=== PATIENT | male | born 1985 | race Caucasian/White ===

== ENCOUNTER 2024-10-18 09:04 | Emergency (ER) | payer OTHER ==
[~2024-10-18] VITALS: Ht 190.5 cm; Wt 120.5 kg
[2024-10-18 09:36] LABS: VENOUS BASE EXCESS -3.0 (-2.0-2.0); VENOUS HCO3 21.2 MMOL/L (23.0-27.0); VENOUS O2 SATURATION 84.9 % (60.0-80.0); VENOUS PARTIAL PRESSURE CO2 35.7 mmHg (38.0-50.0); VENOUS PARTIAL PRESSURE O2 49.1 mmHg (30.0-50.0); VENOUS PH 7.391 UNITS (7.330-7.430); VENOUS STANDARD HCO3 21.6 MMOL/L; VENOUS TOTAL CO2 22.3 MMOL/L (24.0-28.0)
[2024-10-18] MEDS: [UNRECOGNIZED DRUG - OTHER] IV ONE (09:36)
[2024-10-18] MEDS: NS 0.9% IV ONE (09:36)
[2024-10-18 09:42] LABS: BASO # 0.1 10^3/uL (0.0-0.2); BASO % 0.5 % (0.0-1.0); EOS # 0.3 10^3/uL (0.0-0.5); EOS % 1.8 % (0.0-3.0); LYMPH # 2.1 10^3/uL (1.5-5.0); LYMPH % 14.0 % (24.0-44.0); MONO # 1.2 10^3/uL (0.0-0.8); MONO % 8.3 % (2.0-8.0); NEUTROPHILS # 11.2 10^3/uL (1.5-8.5); NEUTROPHILS % 74.7 % (36.0-66.0); PLATELET COUNT, AUTOMATED 432 10^3/uL (150-450)
[2024-10-18 09:50] LABS: APPEARANCE, URINE CLOUDY (CLEAR); BACTERIA, URINE AUTO 2+ (NEGATIVE); BILIRUBIN, URINE AUTO NEGATIVE (NEGATIVE); BLOOD, URINE BLOOD 2+ (NEGATIVE); GLUCOSE, URINE (UA) AUTO NEGATIVE (NEGATIVE); KETONE, URINE AUTO NEGATIVE (NEGATIVE); LEUKOCYTE ESTERASE, URINE AUTO 3+ (NEGATIVE); MUCUS, URINE SMALL (NEGATIVE); NITRITE, URINE AUTO NEGATIVE (NEGATIVE); PROTEIN, URINE AUTO 2+ mg/dL (NEGATIVE); RBC, URINE AUTO TNTC /HPF (0-3); SPECIFIC GRAVITY URINE AUTO 1.006 (1.002-1.035); SQUAMOUS EPITHELIAL CELL UR AU 1 /HPF (0-6); UROBILINOGEN, URINE AUTO 0.2 mg/dL (0.0-2.0); WBC, URINE AUTO TNTC /HPF (0-3)
[2024-10-18 09:58] LABS: INR 1.09
[2024-10-18 10:10] LABS: ALT/SGPT 14 U/L (7.0-40); AST/SGOT < 8 U/L (<34); C REACTIVE PROTEIN QUANTITATIV 0.62 MG/DL (<1.0); CALCIUM LEVEL 9.4 MG/DL (8.5-10.1); CARBON DIOXIDE LEVEL 22 MMOL/L (20-31); CHLORIDE LEVEL 108 MMOL/L (98-107); CREATININE FOR GFR 0.80 MG/DL (0.70-1.30); GLOMERULAR FILTRATION RATE > 90.0 (>60); POTASSIUM SERUM 4.2 MMOL/L (3.5-5.1); SODIUM LEVEL 141 MMOL/L (136-145)
[2024-10-18] MEDS: cefTRIAXone SOD 2 GM in DEXTROSE 5% (D5W) ADV/MINI-BAG 50 ML IV ONE (10:32)
[2024-10-18] MEDS ORDERED: ISOVUE-370 76% 100 ML VIAL As Ordered ONE (11:25)
[2024-10-18] MEDS: FACTOR XA,INACTIVATED-ZHZO 400 MG in APPROPRIATE DILUENT 40 ML IV ONE (12:47)
[2024-10-18] MEDS: FACTOR XA,INACTIVATED-ZHZO 480 MG in APPROPRIATE DILUENT 48 ML IV ONE (12:54)
[2024-10-18 14:06] VITALS: BP 143/67; TEMP 96.6; O2SAT 98
== END 2024-10-18 14:25 | disposition short-term general hospital (02) ==
LOC: M ED 09:04
DX: I60.9 Nontraumatic subarachnoid hemorrhage, unspecified (principal); A41.9 Sepsis, unspecified organism; F32.A Depression, unspecified; G82.20 Paraplegia, unspecified; Z96.0 Presence of urogenital implants; F17.200 Nicotine dependence, unspecified, uncomplicated
CPT/HCPCS: 70450; 70496; 70498; 71045; 80048; 80076; 81001; 82150; 82803; 83605; 84145; 84484; 85025; 85610; 85730; 86140; 86850; 86900; 86901; 87040; 87088; 87186; 87486; 87581; 87633; 87798; 93005; 93041; 94760; 96361; 96365; 96366; 96367; 99285; J0696; J7169; Q9967

== ENCOUNTER → 2024-11-13 | Outpatient (REF) | payer OTHER ==
[2024-11-13 15:12] LABS: APPEARANCE, URINE CLOUDY (CLEAR); BACTERIA, URINE AUTO 3+ (NEGATIVE); BILIRUBIN, URINE AUTO NEGATIVE (NEGATIVE); BLOOD, URINE BLOOD 2+ (NEGATIVE); GLUCOSE, URINE (UA) AUTO NEGATIVE (NEGATIVE); KETONE, URINE AUTO NEGATIVE (NEGATIVE); LEUKOCYTE ESTERASE, URINE AUTO 3+ (NEGATIVE); MUCUS, URINE SMALL (NEGATIVE); NITRITE, URINE AUTO POSITIVE (NEGATIVE); PROTEIN, URINE AUTO 1+ mg/dL (NEGATIVE); RBC, URINE AUTO 54 /HPF (0-3); SPECIFIC GRAVITY URINE AUTO 1.014 (1.002-1.035); SQUAMOUS EPITHELIAL CELL UR AU 0 /HPF (0-6); UROBILINOGEN, URINE AUTO 0.2 mg/dL (0.0-2.0); WBC, URINE AUTO 78 /HPF (0-3)
== END ==
LOC: M LAB REF 14:39
PROVIDERS: ATTEND Physician Assistant
DX: R30.0 Dysuria (principal)

== ENCOUNTER 2024-11-23 00:26 | Inpatient (IN) | payer OTHER, MEDICAID ==
[~2024-11-23] VITALS: Ht 190.5 cm; Wt 120.4 kg
[2024-11-23] MEDS: ACETAMINOPHEN *IV* 1,000 MG in IV 1 EA IV ONE (01:22)
[2024-11-23] MEDS: NS (Normal Saline) 0.9% 1,000 ML IV ONE ×2 (01:41→02:40)
[2024-11-23 01:58] LABS: ALT/SGPT 22 U/L (7.0-40); AST/SGOT 11 U/L (<34); CALCIUM LEVEL 9.6 MG/DL (8.5-10.1); CARBON DIOXIDE LEVEL 18 MMOL/L (20-31); CHLORIDE LEVEL 109 MMOL/L (98-107); CK-MB VALUE MASS 1.5 NG/ML (<3.6); CREATININE FOR GFR 0.96 MG/DL (0.70-1.30); GLOMERULAR FILTRATION RATE > 90.0 (>60); POTASSIUM SERUM 3.2 MMOL/L (3.5-5.1); SODIUM LEVEL 142 MMOL/L (136-145)
[2024-11-23 01:59] LABS: CPK CREATINE PHOSPHOKINASE 89 U/L (46-171); MB/CK RELATIVE INDEX 1.68 (< OR =4)
[2024-11-23] MEDS ORDERED: ISOVUE-370 76% 100 ML VIAL As Ordered ONE (02:03)
[2024-11-23 02:10] LABS: BASO # 0.1 10^3/uL (0.0-0.2); BASO % 0.5 % (0.0-1.0); EOS # 0.1 10^3/uL (0.0-0.5); EOS % 0.6 % (0.0-3.0); LYMPH # 1.7 10^3/uL (1.5-5.0); LYMPH % 9.2 % (24.0-44.0); MONO # 1.7 10^3/uL (0.0-0.8); MONO % 9.0 % (2.0-8.0); NEUTROPHILS # 14.9 10^3/uL (1.5-8.5); NEUTROPHILS % 79.5 % (36.0-66.0); PLATELET COUNT, AUTOMATED 381 10^3/uL (150-450)
[2024-11-23] MEDS: MORPHINE 4 MG/ML 1 ML VIAL IV ONE (02:21)
[2024-11-23 02:43] LABS: RSV AMPLIFICATION NEGATIVE (NEGATIVE)
[2024-11-23] MEDS: HYDROMORPHONE HCL 0.5 MG/0.5 ML SYRINGE IV ONE (04:00)
[2024-11-23] MEDS: PIPERACILLIN/TAZOBACTAM SOD 4.5 GM in DEXTROSE 5% (D5W) ADV/MINI-BAG 50 ML IV ONE (05:33)
[2024-11-23 05:50] LABS: KETONE, URINE AUTO RFX NEGATIVE (NEGATIVE); LEUKOCYTE ESTERASE UR AUTO RFX 2+ (NEGATIVE); MUCUS, URINE RFX SMALL (NEGATIVE); NITRITE, URINE AUTO RFX POSITIVE (NEGATIVE); RBC, URINE AUTO RFX 21 /HPF (0-3); SQUAM EPITHELIAL CELL UR AURFX 0 /HPF (0-6); WBC, URINE AUTO RFX 48 /HPF (0-3)
[2024-11-23] MEDS ORDERED: TIZA4CAP PO (06:35)
[2024-11-23] MEDS ORDERED: DULO1CAP5 PO (06:35)
[2024-11-23] MEDS ORDERED: OXYC20TA2 PO (06:35)
[2024-11-23] MEDS ORDERED: NITR100C2 PO (06:35)
[2024-11-23] MEDS ORDERED: MORP-69 PO (06:35)
[2024-11-23] MEDS ORDERED: MIDO5TA PO (06:35)
[2024-11-23] MEDS ORDERED: CIPR500T39 PO (06:35)
[2024-11-23] MEDS ORDERED: GABA-1172 PO (06:35)
[2024-11-23] MEDS ORDERED: TRAZ-257 PO (06:35)
[2024-11-23] MEDS ORDERED: VANCOMYCIN HCL 1,000 MG, VIAL MATE ADAPTER 1 EACH in NS 250 ML IV SCH (09:00)
[2024-11-23] MEDS ORDERED: ENOXAPARIN 40 MG/0.4 ML SYRINGE (J1650 PER 10MG) SC SCH (09:00)
[2024-11-23] MEDS: POTASSIUM CHLORIDE 10MEQ SR TABLET PO ONE (09:01)
[2024-11-23] MEDS: DOXYCYCLINE HYCLATE 100 MG TABLET PO SCH (09:01)
[2024-11-23 09:15] LABS: INR 1.08
[2024-11-23 09:17] LABS: D-DIMER QUANT 2.07 ug/mL (<0.5); INR 1.12
[2024-11-23] MEDS ORDERED: HOME MED LIST COMPLETE! XX SCH (09:30)
[2024-11-23 09:51] LABS: ALT/SGPT 20 U/L (7.0-40); AST/SGOT 10 U/L (<34); CALCIUM LEVEL 9.0 MG/DL (8.5-10.1); CARBON DIOXIDE LEVEL 22 MMOL/L (20-31); CHLORIDE LEVEL 108 MMOL/L (98-107); CREATININE FOR GFR 0.59 MG/DL (0.70-1.30); GLOMERULAR FILTRATION RATE > 90.0 (>60); POTASSIUM SERUM 3.7 MMOL/L (3.5-5.1); SODIUM LEVEL 141 MMOL/L (136-145)
[2024-11-23] MEDS: PANTOPRAZOLE 40MG VIAL IV SCH (10:10)
[2024-11-23] MEDS: CIPROFLOXACIN 400 MG in IV 1 EA IV SCH (10:10)
[2024-11-23] MEDS: GABAPENTIN 300 MG CAP PO SCH (10:11)
[2024-11-23 10:30] VITALS: BP 149/91; TEMP 97.5; O2SAT 98
[2024-11-23] MEDS: HYDROmorphone HCL 2 MG/ML 1 ML VIAL IV PRN (10:43)
[2024-11-23] MEDS: MORPHINE SULFATE TAB EXT REL 15 MG PO SCH (11:00)
[2024-11-23] MEDS ORDERED: LEVALBUTEROL 1.25 MG 0.5ML CONCENTRATE NEB NEB PRN (11:55)
[2024-11-23] MEDS: VANCOMYCIN HCL 2,000 MG, VIAL MATE ADAPTER 1 EACH in NS 500 ML IV ONE (12:24)
[2024-11-23 12:28] VITALS: TEMP 96.8
[2024-11-23 12:38] LABS: IRON (FE) 23 UG/DL (65-175)
[2024-11-23 12:39] LABS: PERCENT SATURATION 7.6 % (19.7-50.0)
[2024-11-23 12:41] LABS: VITAMIN B12 LEVEL 280 PG/ML (211-911)
[2024-11-23 12:55] VITALS: BP 152/83; TEMP 97.7; O2SAT 93
[2024-11-23] MEDS: NICOTINE 21 MG/24 HR 1 EA TRANSDERMAL TD SCH (13:46)
[2024-11-23] MEDS: guaiFENesin ER TABLET 600 MG TAB PO SCH (13:46)
[2024-11-23] MEDS: LEVALBUTEROL 1.25 MG 0.5ML CONCENTRATE NEB NEB SCH (14:18)
[2024-11-23] MEDS: MEROPENEM 2 GM in SODIUM CHLORIDE 0.9% INJ 100 ML IV SCH (15:35)
[2024-11-23] MEDS: MIDODRINE 5 MG TAB PO SCH (15:41)
[2024-11-23] MEDS: VANCOMYCIN HCL 1,250 MG, VIAL MATE ADAPTER 1 EACH in NS 250 ML IV SCH (18:41)
[2024-11-23 20:44] VITALS: BP 141/77; TEMP 97.9; O2SAT 92
[2024-11-23] MEDS ORDERED: DOXYCYCLINE HYCLATE 100 MG TABLET PO SCH (21:00)
[2024-11-24 04:11] VITALS: BP 140/86; TEMP 97.3; O2SAT 98
[2024-11-24 04:30] VITALS: BP 146/83; TEMP 97.9; O2SAT 90
[2024-11-24 07:32] VITALS: O2SAT 93
[2024-11-24 09:18] LABS: PLATELET COUNT, AUTOMATED 327 10^3/uL (150-450)
[2024-11-24] MEDS: ENOXAPARIN 40 MG/0.4 ML SYRINGE (J1650 PER 10MG) SC SCH (09:23)
[2024-11-24 09:42] LABS: ALT/SGPT 19 U/L (7.0-40); AST/SGOT 9 U/L (<34); CALCIUM LEVEL 9.1 MG/DL (8.5-10.1); CARBON DIOXIDE LEVEL 25 MMOL/L (20-31); CHLORIDE LEVEL 103 MMOL/L (98-107); CREATININE FOR GFR 0.46 MG/DL (0.70-1.30); GLOMERULAR FILTRATION RATE > 90.0 (>60); POTASSIUM SERUM 3.8 MMOL/L (3.5-5.1); SODIUM LEVEL 138 MMOL/L (136-145)
[2024-11-24] MEDS: VANCOMYCIN HCL 1,500 MG, VIAL MATE ADAPTER 1 EACH in NS 500 ML IV SCH (10:28)
[2024-11-24 12:00] VITALS: BP 127/67; TEMP 97.5; O2SAT 94
[2024-11-24 21:05] VITALS: BP 131/70; TEMP 97.5; O2SAT 93
[2024-11-25 03:40] VITALS: BP 122/69; TEMP 97.7; O2SAT 93
[2024-11-25] MEDS: ACETAMINOPHEN 325 MG TAB PO PRN (08:03)
[2024-11-25 08:56] LABS: PLATELET COUNT, AUTOMATED 325 10^3/uL (150-450)
[2024-11-25 09:21] LABS: ALT/SGPT 18 U/L (7.0-40); AST/SGOT < 8 U/L (<34); CALCIUM LEVEL 9.2 MG/DL (8.5-10.1); CARBON DIOXIDE LEVEL 26 MMOL/L (20-31); CHLORIDE LEVEL 101 MMOL/L (98-107); CREATININE FOR GFR 0.49 MG/DL (0.70-1.30); GLOMERULAR FILTRATION RATE > 90.0 (>60); POTASSIUM SERUM 4.1 MMOL/L (3.5-5.1); SODIUM LEVEL 137 MMOL/L (136-145)
[2024-11-25 12:00] VITALS: BP 151/83; TEMP 93; O2SAT 93
[2024-11-25] MEDS: MORPHINE SULFATE TAB EXT REL 15 MG PO SCH (16:52)
[2024-11-25 20:05] VITALS: BP 131/78; TEMP 97.3; O2SAT 91
[2024-11-26 05:37] VITALS: BP 116/68; TEMP 97.9; O2SAT 92
[2024-11-26 07:24] LABS: PLATELET COUNT, AUTOMATED 349 10^3/uL (150-450)
[2024-11-26 07:46] LABS: ALT/SGPT 17 U/L (7.0-40); AST/SGOT 9 U/L (<34); CALCIUM LEVEL 9.3 MG/DL (8.5-10.1); CARBON DIOXIDE LEVEL 27 MMOL/L (20-31); CHLORIDE LEVEL 103 MMOL/L (98-107); CREATININE FOR GFR 0.47 MG/DL (0.70-1.30); GLOMERULAR FILTRATION RATE > 90.0 (>60); POTASSIUM SERUM 4.4 MMOL/L (3.5-5.1); SODIUM LEVEL 137 MMOL/L (136-145)
[2024-11-26] MEDS: FERROUS SULFATE 325 MG TAB PO SCH (09:53)
[2024-11-26 12:00] VITALS: BP 140/65; TEMP 97.3; O2SAT 97
[2024-11-26 20:08] VITALS: BP 137/73; TEMP 97.5; O2SAT 96
[2024-11-27 06:08] VITALS: BP 140/74; TEMP 97.5; O2SAT 96
[2024-11-27 06:33] LABS: BASO # 0.1 10^3/uL (0.0-0.2); BASO % 1.1 % (0.0-1.0); EOS # 0.7 10^3/uL (0.0-0.5); EOS % 6.9 % (0.0-3.0); LYMPH # 2.2 10^3/uL (1.5-5.0); LYMPH % 22.0 % (24.0-44.0); MONO # 0.8 10^3/uL (0.0-0.8); MONO % 8.6 % (2.0-8.0); NEUTROPHILS # 5.9 10^3/uL (1.5-8.5); NEUTROPHILS % 60.5 % (36.0-66.0); PLATELET COUNT, AUTOMATED 389 10^3/uL (150-450)
[2024-11-27 07:36] LABS: CALCIUM LEVEL 9.4 MG/DL (8.5-10.1); CARBON DIOXIDE LEVEL 26 MMOL/L (20-31); CHLORIDE LEVEL 105 MMOL/L (98-107); CREATININE FOR GFR 0.52 MG/DL (0.70-1.30); GLOMERULAR FILTRATION RATE > 90.0 (>60); POTASSIUM SERUM 4.5 MMOL/L (3.5-5.1); SODIUM LEVEL 141 MMOL/L (136-145)
[2024-11-27] MEDS: PIPERACILLIN/TAZOBACTAM SOD 4.5 GM in DEXTROSE 5% (D5W) ADV/MINI-BAG 50 ML IV SCH (13:44)
[2024-11-28 03:56] VITALS: BP 132/80; TEMP 97.2; O2SAT 96
[2024-11-28 08:14] VITALS: BP 105/71
[2024-11-28] MEDS ORDERED: RISATAB3 PO (09:21)
[2024-11-28] MEDS ORDERED: MUCI600T31 PO (09:21)
[2024-11-28] MEDS ORDERED: AUGM500T34 PO (09:21)
[2024-11-28] MEDS ORDERED: DOXY-440 PO (09:21)
[2024-11-28 12:30] VITALS: BP 122/63; TEMP 97.5; O2SAT 95
[2024-11-28] MEDS ORDERED: MIDO5TA PO (16:27)
== END 2024-11-28 13:21 | disposition home health service (06) | DRG 466 ==
LOC: M ED 00:26 → M ED INP 07:20 → EEVIPCON 07:20 → M MSPAV 10:31
PROVIDERS: ADMIT Internal Medicine; ATTEND Student in an Organized Health Care Education/Training Program
DX: T83.511A Infection and inflammatory reaction due to indwelling urethral catheter, initial encounter (principal); A41.9 Sepsis, unspecified organism; J18.9 Pneumonia, unspecified organism; L89.154 Pressure ulcer of sacral region, stage 4; G82.20 Paraplegia, unspecified; N31.9 Neuromuscular dysfunction of bladder, unspecified; D50.9 Iron deficiency anemia, unspecified; E87.6 Hypokalemia; G89.29 Other chronic pain; N39.0 Urinary tract infection, site not specified; J98.11 Atelectasis; M54.2 Cervicalgia; Z74.01 Bed confinement status; Y84.6 Urinary catheterization as the cause of abnormal reaction of the patient, or of later complication, without mention of misadventure at the time of the procedure; Z86.718 Personal history of other venous thrombosis and embolism; Z79.891 Long term (current) use of opiate analgesic; Z79.899 Other long term (current) drug therapy

== ENCOUNTER 2024-11-30 21:45 | Emergency (ER) | payer OTHER ==
[~2024-11-30] VITALS: Ht 190.5 cm; Wt 120.4 kg
[~2024-11-30 21:45] MED LIST: AUGM500T34 PO; CIPR500T39 PO; DOXY-440 PO; DULO1CAP5 PO; GABA-1172 PO; MIDO5TA PO; MORP-69 PO; MUCI600T31 PO; NITR100C2 PO; OXYC20TA2 PO; RISATAB3 PO; TIZA4CAP PO; TRAZ-257 PO
[2024-11-30] MEDS: HYDROMORPHONE HCL 0.5 MG/0.5 ML SYRINGE IM ONE (23:00)
[2024-12-01 00:34] LABS: KETONE, URINE AUTO RFX NEGATIVE (NEGATIVE); LEUKOCYTE ESTERASE UR AUTO RFX 1+ (NEGATIVE); MUCUS, URINE RFX SMALL (NEGATIVE); NITRITE, URINE AUTO RFX NEGATIVE (NEGATIVE); RBC, URINE AUTO RFX 83 /HPF (0-3); SQUAM EPITHELIAL CELL UR AURFX 0 /HPF (0-6); WBC, URINE AUTO RFX 14 /HPF (0-3)
[2024-12-01 00:48] VITALS: BP 125/55; TEMP 96.6; O2SAT 94
== END 2024-12-01 01:34 | disposition home or self-care (01) ==
LOC: M ED 21:45
DX: T83.098A Other mechanical complication of other urinary catheter, initial encounter (principal); R31.9 Hematuria, unspecified; G82.20 Paraplegia, unspecified; Y82.8 Other medical devices associated with adverse incidents; N31.9 Neuromuscular dysfunction of bladder, unspecified; Z86.718 Personal history of other venous thrombosis and embolism; F17.200 Nicotine dependence, unspecified, uncomplicated; Z79.899 Other long term (current) drug therapy
CPT/HCPCS: 81001; 87086; 96372; 99284; J1171

== ENCOUNTER 2024-12-09 15:45 | Emergency (ER) | payer OTHER ==
[~2024-12-09] VITALS: Ht 190.5 cm; Wt 128.8 kg
[2024-12-09 17:11] VITALS: TEMP 97
[2024-12-09] MEDS: HYDROMORPHONE HCL 0.5 MG/0.5 ML SYRINGE IV ONE (18:23)
[2024-12-09 18:46] LABS: BASO # 0.1 10^3/uL (0.0-0.2); BASO % 0.8 % (0.0-1.0); EOS # 0.3 10^3/uL (0.0-0.5); EOS % 2.8 % (0.0-3.0); LYMPH # 2.1 10^3/uL (1.5-5.0); LYMPH % 19.9 % (24.0-44.0); MONO # 1.0 10^3/uL (0.0-0.8); MONO % 9.2 % (2.0-8.0); NEUTROPHILS # 6.9 10^3/uL (1.5-8.5); NEUTROPHILS % 66.7 % (36.0-66.0); PLATELET COUNT, AUTOMATED 369 10^3/uL (150-450)
[2024-12-09 18:56] LABS: C REACTIVE PROTEIN QUANTITATIV 0.90 MG/DL (<1.0); CALCIUM LEVEL 9.6 MG/DL (8.5-10.1); CARBON DIOXIDE LEVEL 28 MMOL/L (20-31); CHLORIDE LEVEL 103 MMOL/L (98-107); CREATININE FOR GFR 0.56 MG/DL (0.70-1.30); GLOMERULAR FILTRATION RATE > 90.0 (>60); POTASSIUM SERUM 4.4 MMOL/L (3.5-5.1); SODIUM LEVEL 141 MMOL/L (136-145)
[2024-12-09 19:01] LABS: KETONE, URINE AUTO RFX NEGATIVE (NEGATIVE); LEUKOCYTE ESTERASE UR AUTO RFX 3+ (NEGATIVE); MUCUS, URINE RFX SMALL (NEGATIVE); NITRITE, URINE AUTO RFX POSITIVE (NEGATIVE); RBC, URINE AUTO RFX 115 /HPF (0-3); SQUAM EPITHELIAL CELL UR AURFX 0 /HPF (0-6); WBC, URINE AUTO RFX 171 /HPF (0-3)
[2024-12-09] MEDS ORDERED: CEFD1CAP9 PO (19:44)
[2024-12-09] MEDS: CEFDINIR 300 MG CAP PO ONE (20:11)
[2024-12-09 20:14] VITALS: BP 147/68
[2024-12-09 20:15] VITALS: O2SAT 94
== END 2024-12-09 20:30 | disposition home or self-care (01) ==
LOC: EDBD 15:45 → M ED 15:45 → EEVIPCON 15:45 → M ED 20:30
DX: N39.0 Urinary tract infection, site not specified (principal); I51.7 Cardiomegaly; J90 Pleural effusion, not elsewhere classified; F17.200 Nicotine dependence, unspecified, uncomplicated; F12.10 Cannabis abuse, uncomplicated; Z79.899 Other long term (current) drug therapy
CPT/HCPCS: 71045; 80048; 81001; 83605; 85025; 86140; 87088; 87186; 96374; 99284; J1171

== ENCOUNTER 2024-12-12 20:35 | Observation (INO) | payer OTHER ==
[~2024-12-12] VITALS: Ht 190.5 cm; Wt 129.0 kg
[~2024-12-12 20:35] MED LIST changes: +CEFD1CAP9 PO
[2024-12-12 21:12] LABS: KETONE, URINE AUTO RFX NEGATIVE (NEGATIVE); LEUKOCYTE ESTERASE UR AUTO RFX 3+ (NEGATIVE); MUCUS, URINE RFX SMALL (NEGATIVE); NITRITE, URINE AUTO RFX NEGATIVE (NEGATIVE); RBC, URINE AUTO RFX 43 /HPF (0-3); SQUAM EPITHELIAL CELL UR AURFX 0 /HPF (0-6); WBC, URINE AUTO RFX TNTC /HPF (0-3)
[2024-12-12] MEDS ORDERED: AMIKACIN 1000 MG/4 ML IV ONE (21:45)
[2024-12-12] MEDS: ONDANSETRON 4MG/2ML VIAL IV ONE (22:02)
[2024-12-12] MEDS: HYDROMORPHONE HCL 0.5 MG/0.5 ML SYRINGE IV PRN (22:03)
[2024-12-12 22:08] LABS: BASO # 0.1 10^3/uL (0.0-0.2); BASO % 0.8 % (0.0-1.0); EOS # 0.3 10^3/uL (0.0-0.5); EOS % 2.6 % (0.0-3.0); LYMPH # 2.1 10^3/uL (1.5-5.0); LYMPH % 18.4 % (24.0-44.0); MONO # 1.1 10^3/uL (0.0-0.8); MONO % 9.3 % (2.0-8.0); NEUTROPHILS # 7.9 10^3/uL (1.5-8.5); NEUTROPHILS % 68.5 % (36.0-66.0); PLATELET COUNT, AUTOMATED 355 10^3/uL (150-450)
[2024-12-12 22:37] LABS: CALCIUM LEVEL 9.6 MG/DL (8.5-10.1); CARBON DIOXIDE LEVEL 26 MMOL/L (20-31); CHLORIDE LEVEL 108 MMOL/L (98-107); CREATININE FOR GFR 0.56 MG/DL (0.70-1.30); GLOMERULAR FILTRATION RATE > 90.0 (>60); POTASSIUM SERUM 4.1 MMOL/L (3.5-5.1); SODIUM LEVEL 142 MMOL/L (136-145)
[2024-12-12] MEDS: AMIKACIN SULFATE IV ONE (22:46)
[2024-12-12] MEDS: D5W IV ONE (22:46)
[2024-12-12] MEDS ORDERED: MORP1CAP PO (23:51)
[2024-12-12] MEDS ORDERED: HOME MED LIST COMPLETE! XX SCH (23:55)
[2024-12-13] MEDS ORDERED: MIDODRINE 5 MG TAB PO PRN
[2024-12-13] MEDS: AMIKACIN SULFATE IV ONE (01:24)
[2024-12-13] MEDS: D5W IV ONE (01:24)
[2024-12-13] MEDS ORDERED: HYDROMORPHONE HCL 0.5 MG/0.5 ML SYRINGE IV PRN ×2 (02:45→09:40)
[2024-12-13] MEDS: HYDROMORPHONE HCL 0.5 MG/0.5 ML SYRINGE IV PRN ×2 (02:58→09:57)
[2024-12-13] MEDS: GABAPENTIN 300 MG CAP PO SCH (08:15)
[2024-12-13] MEDS: ENOXAPARIN 40 MG/0.4 ML SYRINGE (J1650 PER 10MG) SC SCH (08:15)
[2024-12-13] MEDS: MORPHINE SULFATE TAB EXT REL 30 MG PO SCH (08:16)
[2024-12-13] MEDS: PANTOPRAZOLE 40MG VIAL IV SCH (08:16)
[2024-12-13 09:15] LABS: BASO # 0.1 10^3/uL (0.0-0.2); BASO % 1.0 % (0.0-1.0); EOS # 0.3 10^3/uL (0.0-0.5); EOS % 4.0 % (0.0-3.0); LYMPH # 1.9 10^3/uL (1.5-5.0); LYMPH % 24.8 % (24.0-44.0); MONO # 0.7 10^3/uL (0.0-0.8); MONO % 9.3 % (2.0-8.0); NEUTROPHILS # 4.6 10^3/uL (1.5-8.5); NEUTROPHILS % 60.2 % (36.0-66.0); PLATELET COUNT, AUTOMATED 350 10^3/uL (150-450)
[2024-12-13 09:33] LABS: ALT/SGPT 15 U/L (7.0-40); AST/SGOT < 8 U/L (<34); CALCIUM LEVEL 9.3 MG/DL (8.5-10.1); CARBON DIOXIDE LEVEL 25 MMOL/L (20-31); CHLORIDE LEVEL 104 MMOL/L (98-107); CREATININE FOR GFR 0.54 MG/DL (0.70-1.30); GLOMERULAR FILTRATION RATE > 90.0 (>60); MAGNESIUM LEVEL 2.1 MG/DL (1.8-2.4); POTASSIUM SERUM 4.1 MMOL/L (3.5-5.1); SODIUM LEVEL 140 MMOL/L (136-145)
[2024-12-13 10:21] LABS: C REACTIVE PROTEIN QUANTITATIV 1.14 MG/DL (<1.0)
[2024-12-13 15:30] VITALS: BP 121/64; TEMP 97.5; O2SAT 92
[2024-12-13] MEDS: D5W IV SCH (18:14)
[2024-12-13] MEDS: TOBRAMYCIN SULF IV SCH (18:14)
[2024-12-14] MEDS: traZODone 100 MG TAB PO PRN (00:17)
[2024-12-14] MEDS: METHADONE 10 MG TAB PO ONE (01:23)
[2024-12-14 03:47] VITALS: BP 109/57; TEMP 97.9; O2SAT 95
[2024-12-14 07:49] LABS: BASO # 0.1 10^3/uL (0.0-0.2); BASO % 1.1 % (0.0-1.0); EOS # 0.3 10^3/uL (0.0-0.5); EOS % 3.1 % (0.0-3.0); LYMPH # 2.4 10^3/uL (1.5-5.0); LYMPH % 29.1 % (24.0-44.0); MONO # 0.7 10^3/uL (0.0-0.8); MONO % 8.7 % (2.0-8.0); NEUTROPHILS # 4.7 10^3/uL (1.5-8.5); NEUTROPHILS % 57.5 % (36.0-66.0); PLATELET COUNT, AUTOMATED 337 10^3/uL (150-450)
[2024-12-14] MEDS ORDERED: HYDROMORPHONE HCL 0.5 MG/0.5 ML SYRINGE IV PRN (08:10)
[2024-12-14 08:32] LABS: ALT/SGPT 16 U/L (7.0-40); AST/SGOT < 8 U/L (<34); CALCIUM LEVEL 9.2 MG/DL (8.5-10.1); CARBON DIOXIDE LEVEL 25 MMOL/L (20-31); CHLORIDE LEVEL 107 MMOL/L (98-107); CREATININE FOR GFR 0.55 MG/DL (0.70-1.30); GLOMERULAR FILTRATION RATE > 90.0 (>60); MAGNESIUM LEVEL 2.2 MG/DL (1.8-2.4); POTASSIUM SERUM 4.2 MMOL/L (3.5-5.1); SODIUM LEVEL 141 MMOL/L (136-145)
[2024-12-14] MEDS ORDERED: CIPR250T3 PO (10:50)
[2024-12-14] MEDS: HYDROMORPHONE HCL 0.5 MG/0.5 ML SYRINGE IV PRN (11:13)
[2024-12-14] MEDS ORDERED: BACL10TA8 PO (11:35)
[2024-12-14 12:00] VITALS: BP 90/44; TEMP 97.5; O2SAT 98
== END 2024-12-14 13:04 | disposition home or self-care (01) ==
LOC: M ED 20:35 → M ED INP 20:36 → M MSPAV 12-13 14:41
PROVIDERS: ADMIT Student in an Organized Health Care Education/Training Program; ATTEND Internal Medicine
DX: N39.0 Urinary tract infection, site not specified (principal); B96.5 Pseudomonas (aeruginosa) (mallei) (pseudomallei) as the cause of diseases classified elsewhere; G82.22 Paraplegia, incomplete; N31.9 Neuromuscular dysfunction of bladder, unspecified; W13.4XXS Fall from, out of or through window, sequela; Y04.0XXS Assault by unarmed brawl or fight, sequela; Y92.9 Unspecified place or not applicable; L89.159 Pressure ulcer of sacral region, unspecified stage; M46.28 Osteomyelitis of vertebra, sacral and sacrococcygeal region; M43.22 Fusion of spine, cervical region; G90.89 Other disorders of autonomic nervous system; R13.12 Dysphagia, oropharyngeal phase; G89.29 Other chronic pain; M62.838 Other muscle spasm; Z86.718 Personal history of other venous thrombosis and embolism; Z86.73 Personal history of transient ischemic attack (TIA), and cerebral infarction without residual deficits; Z93.1 Gastrostomy status; Z96.0 Presence of urogenital implants; Z87.440 Personal history of urinary (tract) infections; Z93.3 Colostomy status; Z98.1 Arthrodesis status; G47.00 Insomnia, unspecified; Z82.41 Family history of sudden cardiac death; Z82.49 Family history of ischemic heart disease and other diseases of the circulatory system; Z87.01 Personal history of pneumonia (recurrent); F17.210 Nicotine dependence, cigarettes, uncomplicated; R53.81 Other malaise; R53.83 Other fatigue; R68.83 Chills (without fever); F14.11 Cocaine abuse, in remission; F15.11 Other stimulant abuse, in remission; Z79.899 Other long term (current) drug therapy; Z79.891 Long term (current) use of opiate analgesic; Z66 Do not resuscitate
CPT/HCPCS: 36415; 70450; 74176; 80048; 80053; 80200; 81001; 83605; 83735; 84145; 85025; 86140; 87040; 87088; 87186; 96372; 96374; 96375; 96376; 99285; J0278; J1171; J1650; J2405; J2470; J3260; S0109

== ENCOUNTER 2025-01-09 01:50 | Observation (INO) | payer OTHER ==
[~2025-01-09] VITALS: Ht 188 cm; Wt 136.4 kg
[~2025-01-09 01:50] MED LIST changes: +BACL10TA8 PO; +CIPR250T3 PO; +MORP1CAP PO
[2025-01-09 03:03] LABS: BASO # 0.1 10^3/uL (0.0-0.2); BASO % 0.6 % (0.0-1.0); EOS # 0.2 10^3/uL (0.0-0.5); EOS % 1.3 % (0.0-3.0); LYMPH # 2.0 10^3/uL (1.5-5.0); LYMPH % 12.6 % (24.0-44.0); MONO # 1.2 10^3/uL (0.0-0.8); MONO % 7.5 % (2.0-8.0); NEUTROPHILS # 12.2 10^3/uL (1.5-8.5); NEUTROPHILS % 77.4 % (36.0-66.0); PLATELET COUNT, AUTOMATED 368 10^3/uL (150-450)
[2025-01-09 03:23] LABS: CK-MB VALUE MASS 1.2 NG/ML (<3.6)
[2025-01-09 03:24] LABS: CALCIUM LEVEL 9.7 MG/DL (8.5-10.1); CARBON DIOXIDE LEVEL 26 MMOL/L (20-31); CHLORIDE LEVEL 107 MMOL/L (98-107); CREATININE FOR GFR 0.92 MG/DL (0.70-1.30); GLOMERULAR FILTRATION RATE > 90.0 (>60); POTASSIUM SERUM 4.4 MMOL/L (3.5-5.1); SODIUM LEVEL 144 MMOL/L (136-145)
[2025-01-09] MEDS: KETOROLAC 30 MG/ML 1 ML VIAL IV ONE ×2 (03:24→16:02)
[2025-01-09 03:27] LABS: CPK CREATINE PHOSPHOKINASE 71 U/L (46-171); MB/CK RELATIVE INDEX 1.69 (< OR =4)
[2025-01-09 03:29] LABS: INR 0.97
[2025-01-09 04:09] LABS: CPK CREATINE PHOSPHOKINASE 65.0 U/L (46-171)
[2025-01-09] MEDS ORDERED: ISOVUE-370 76% 100 ML VIAL As Ordered ONE (04:10)
[2025-01-09 04:11] LABS: CK-MB VALUE MASS 1.3 NG/ML (<3.6); MB/CK RELATIVE INDEX 2.0 (< OR =4)
[2025-01-09] MEDS: ATORVASTATIN 20 MG TAB PO ONE (04:28)
[2025-01-09] MEDS: ASPIRIN 81 MG CHEWABLE TABLET PO ONE (04:29)
[2025-01-09 05:05] LABS: C REACTIVE PROTEIN QUANTITATIV 1.37 MG/DL (<1.0)
[2025-01-09 05:21] LABS: INR 0.99
[2025-01-09 08:09] LABS: CK-MB VALUE MASS 2.0 NG/ML (<3.6)
[2025-01-09 08:10] LABS: CPK CREATINE PHOSPHOKINASE 59.0 U/L (46-171); MB/CK RELATIVE INDEX 3.38 (< OR =4)
[2025-01-09] MEDS: cefTRIAXone SOD 1 GM in DEXTROSE 5% (D5W) ADV/MINI-BAG 50 ML IV ONE (08:38)
[2025-01-09] MEDS: GABAPENTIN 300 MG CAP PO ONE (08:38)
[2025-01-09] MEDS ORDERED: BACL10TA2 PO (08:40)
[2025-01-09] MEDS ORDERED: TIZA4CAP3 PO (08:40)
[2025-01-09] MEDS ORDERED: HOME MED LIST COMPLETE! XX SCH (08:40)
[2025-01-09] MEDS: AZITHROMYCIN INJ 500 MG, VIAL MATE ADAPTER 1 EACH in NS 250 ML IV ONE (09:35)
[2025-01-09] MEDS: NS 500 ML IV ONE (12:00)
[2025-01-09] MEDS: NS (Normal Saline) 0.9% 1,000 ML IV ONE (12:00)
[2025-01-09 12:39] LABS: CK-MB VALUE MASS 2.2 NG/ML (<3.6)
[2025-01-09 12:40] LABS: CPK CREATINE PHOSPHOKINASE 63.0 U/L (46-171); MB/CK RELATIVE INDEX 3.49 (< OR =4)
[2025-01-09] MEDS ORDERED: BACLOFEN 10 MG TAB PO PRN (13:30)
[2025-01-09] MEDS: MORPHINE SULFATE TAB EXT REL 30 MG PO ONE (13:47)
[2025-01-09] MEDS ORDERED: MAALOX 30 ML SUSP *UDC PO PRN (14:25)
[2025-01-09] MEDS ORDERED: ACETAMINOPHEN 325 MG TAB PO PRN (14:25)
[2025-01-09] MEDS ORDERED: MOM 30 ML SUSPENSION UDC PO PRN (14:25)
[2025-01-09] MEDS ORDERED: CAPSAICIN 0.1% CR 56.6 GM TOP PRN (14:40)
[2025-01-09 15:47] LABS: CK-MB VALUE MASS 2.2 NG/ML (<3.6)
[2025-01-09 15:54] LABS: CPK CREATINE PHOSPHOKINASE 70.0 U/L (46-171); MB/CK RELATIVE INDEX 3.14 (< OR =4)
[2025-01-09] MEDS ORDERED: GABAPENTIN 300 MG CAP PO SCH (16:00)
[2025-01-09] MEDS ORDERED: MIDODRINE 5 MG TAB PO SCH (16:00)
[2025-01-09] MEDS: LIDOCAINE 5% PATCH TD ONE (16:02)
[2025-01-09] MEDS: NS (Normal Saline) 0.9% 1,000 ML IV SCH (16:03)
[2025-01-09] MEDS: MORPHINE 4 MG/ML 1 ML VIAL IV PRN (18:24)
[2025-01-09] MEDS ORDERED: traZODone 100 MG TAB PO SCH (21:00)
[2025-01-09] MEDS ORDERED: MORPHINE SULFATE TAB EXT REL 30 MG PO SCH (21:00)
[2025-01-09] MEDS: AMITRIPTYLINE 25 MG TABLET PO SCH (22:25)
[2025-01-09] MEDS: PREGABALIN 50 MG CAP PO SCH (22:26)
[2025-01-10 07:30] LABS: BASO # 0.1 10^3/uL (0.0-0.2); BASO % 0.8 % (0.0-1.0); EOS # 0.3 10^3/uL (0.0-0.5); EOS % 4.5 % (0.0-3.0); LYMPH # 2.3 10^3/uL (1.5-5.0); LYMPH % 29.8 % (24.0-44.0); MONO # 0.7 10^3/uL (0.0-0.8); MONO % 8.5 % (2.0-8.0); NEUTROPHILS # 4.3 10^3/uL (1.5-8.5); NEUTROPHILS % 56.0 % (36.0-66.0); PLATELET COUNT, AUTOMATED 268 10^3/uL (150-450)
[2025-01-10] MEDS ORDERED: FIORICET TAB PO PRN (07:35)
[2025-01-10 07:50] LABS: CALCIUM LEVEL 9.0 MG/DL (8.5-10.1); CARBON DIOXIDE LEVEL 24 MMOL/L (20-31); CHLORIDE LEVEL 110 MMOL/L (98-107); CREATININE FOR GFR 0.55 MG/DL (0.70-1.30); GLOMERULAR FILTRATION RATE > 90.0 (>60); MAGNESIUM LEVEL 2.1 MG/DL (1.8-2.4); POTASSIUM SERUM 4.1 MMOL/L (3.5-5.1); SODIUM LEVEL 143 MMOL/L (136-145)
[2025-01-10] MEDS: ENOXAPARIN 40 MG/0.4 ML SYRINGE (J1650 PER 10MG) SC SCH (08:44)
[2025-01-10] MEDS: LIDOCAINE 5% PATCH TD SCH (08:47)
[2025-01-10] MEDS ORDERED: MORPHINE 4 MG/ML 1 ML VIAL IV PRN (10:10)
[2025-01-10] MEDS: MORPHINE 4 MG/ML 1 ML VIAL IV PRN (11:20)
[2025-01-10] MEDS: CAPSAICIN 0.1% CR 56.6 GM TOP SCH (17:07)
[2025-01-10 17:33] VITALS: BP 164/77; O2SAT 95
[2025-01-10 20:35] VITALS: BP 141/75; TEMP 99; O2SAT 93
[2025-01-10] MEDS: traZODone 50 MG TAB PO ONE (21:14)
[2025-01-10] MEDS: PREGABALIN 75 MG CAP PO SCH (21:14)
[2025-01-10] MEDS: BACLOFEN 10 MG TAB PO PRN (21:14)
[2025-01-10 21:48] LABS: ALT/SGPT 23 U/L (7.0-40); AST/SGOT 13 U/L (<34); CALCIUM LEVEL 9.8 MG/DL (8.5-10.1); CARBON DIOXIDE LEVEL 26 MMOL/L (20-31); CHLORIDE LEVEL 107 MMOL/L (98-107); CREATININE FOR GFR 0.60 MG/DL (0.70-1.30); GLOMERULAR FILTRATION RATE > 90.0 (>60); POTASSIUM SERUM 4.6 MMOL/L (3.5-5.1); SODIUM LEVEL 142 MMOL/L (136-145)
[2025-01-11 00:35] VITALS: BP 169/81; TEMP 98.2; O2SAT 96
[2025-01-11 04:58] VITALS: BP 136/79; TEMP 98.1; O2SAT 95
[2025-01-11 07:34] VITALS: BP 147/81; TEMP 98.6; O2SAT 94
[2025-01-11] MEDS ORDERED: AMIT25TA19 PO (11:05)
[2025-01-11] MEDS ORDERED: LIDO5TD TD (11:05)
[2025-01-11] MEDS ORDERED: PREG50CA87 PO ×2 (11:07→11:10)
== END 2025-01-11 12:13 | disposition home health service (06) ==
LOC: M ED 01:50 → M ED INP 01:51 → M PCU 01-10 17:37
PROVIDERS: ADMIT Student in an Organized Health Care Education/Training Program; ATTEND Student in an Organized Health Care Education/Training Program
DX: R51.9 Headache, unspecified (principal); M54.2 Cervicalgia; G62.9 Polyneuropathy, unspecified; F11.20 Opioid dependence, uncomplicated; G82.22 Paraplegia, incomplete; W17.89XS Other fall from one level to another, sequela; X58.XXXS Exposure to other specified factors, sequela; N31.9 Neuromuscular dysfunction of bladder, unspecified; R79.89 Other specified abnormal findings of blood chemistry; Z74.01 Bed confinement status; Z93.3 Colostomy status; R53.81 Other malaise; L89.154 Pressure ulcer of sacral region, stage 4; Z86.718 Personal history of other venous thrombosis and embolism; I95.89 Other hypotension; I24.89 Other forms of acute ischemic heart disease; J98.11 Atelectasis; R53.1 Weakness; F17.200 Nicotine dependence, unspecified, uncomplicated; Z79.899 Other long term (current) drug therapy
CPT/HCPCS: 36415; 70450; 71045; 71275; 80047; 80048; 80053; 82550; 82553; 83735; 83880; 84145; 84484; 85025; 85610; 85652; 85730; 86140; 86850; 86900; 86901; 87486; 87581; 87633; 87641; 87798; 93005; 93041; 93306; 94760; 96361; 96372; 96374; 96375; 96376; 99285; J0456; J0696; J1650; J1885; J2765; Q9967